=== PATIENT | male | born 1985 | race Caucasian/White ===

== ENCOUNTER 2023-11-15 09:42 | Emergency (ER) | payer OTHER, SELFPAY ==
[2023-11-15 09:43] VITALS: BP 168/112; PULSE 74; RESP 16; TEMP 36.6; O2SAT 98; BMI 36.3
--- NOTE | 2023-11-15 09:51 | EX.ED.DYSGE1 ---
HPI History of Present Illness Chief Complaint: Palpitations Informant: patient Onset/Context/Timing Onset: Days (3) Context: Sudden Onset Timing: Intermittent Quality: Skipping Location: Chest Worsened by: Nothing Relieved by: Nothing Associated Symptoms Associated Symptoms: Lightheadedness, dizziness Narrative Narrative: Patient presents with palpitations that have been intermittent over the past 3 days. Patient states his heart feels like it skips a beat. Patient states it only last for few seconds. Patient states nothing makes it better and nothing makes it worse. Patient admits to some dizziness and lightheadedness with this. Patient denies any shortness of breath or cough. Patient denies any nausea or vomiting. Patient denies any pain or tightness in his chest. Patient denies any fevers or chills. PFSH PFSH Medical History no medical history no medical history Home Medications diazepam 5 mg tablet 5 mg PO Q8 PRN Muscle Spasm #10 tabs 05/27/15 [Rx Last Taken Unknown] naproxen 500 mg tablet 500 mg PO BID PRN #20 tabs 05/27/15 [Rx Last Taken Unknown] oxycodone-acetaminophen 5 mg-325 mg tablet 1 - 2 tab PO Q4H PRN PRN Pain #20 tabs 05/27/15 [Rx Last Taken Unknown] Allergy/AdvReac Type Severity Reaction Status Date / Time No Known Allergies Allergy Verified 11/15/23 09:45 Surgical History no surgical history no surgical history ROS ROS ED Constitutional Constitutional ED: Denies chills or fever(s) Eyes Eyes: Denies blurry vision or change in vision ENT ENT ED: Denies rhinorrhea or sore throat Cardiovascular Cardiovascular: Reports palpitations; Denies chest pain Respiratory/Chest Respiratory/Chest: Denies cough or dyspnea Gastrointestinal Gastrointestinal: Denies nausea or vomiting Genitourinary Genitourinary ED: Denies dysuria or hematuria Musculoskeletal Musculoskeletal: Denies back pain or neck pain Integumentary Denies abscess or rash Neurologic Neurologic: Denies headache(s) or weakness Allergic/Immunologic Allergic/Immunologic ED: Denies mouth swelling or urticaria EXAM Physical Exam Const Vital Signs: 11/15/23 09:43 11/15/23 09:43 11/15/23 10:43 Temperature 97.8 F Temperature Source Temporal Pulse Rate 74 75 Respiratory Rate 16 12 Respiratory Effort Normal Non-Labored Blood Pressure 168/112 H 149/97 H Blood Pressure Mean 130 114 Pulse Ox 98 97 Oxygen Delivery Method Room Air 11/15/23 11:00 11/15/23 12:00 11/15/23 13:00 Temperature Temperature Source Pulse Rate 74 78 79 Respiratory Rate 11 L 13 12 Respiratory Effort Blood Pressure 149/89 H 148/96 H 132/61 H Blood Pressure Mean 109 113 84 Pulse Ox 98 97 99 Oxygen Delivery Method Room Air Room Air Room Air Positive well nourished, well developed and obese General Appearance ED: well developed and NAD Nutritional Appearance: obese HEENT Reports moist mucous membranes Neck supple and no JVD Resp normal respiratory effort and clear to auscultation bilaterally Cardio regular rate and regular rhythm GI non-tender and non-distended Palpation: soft Extremity normal to inspection General Extremety ED: Negative for edema or tenderness General Extremity: Negative for edema Neuro oriented x3, CN's II-XII intact bilaterally and no sensory deficits noted Sensorium / Orientation: alert Motor Exam: strength 5/5 throughout Psych mental status grossly normal MDM MDM MDM Narrative Medical decision making narrative: Differential diagnosis includes cardiac dysrhythmia, cardiac ischemia, electrolyte abnormality, viral illness, pneumonia, and anxiety. EKG will be obtained to assess for cardiac dysrhythmia and cardiac ischemia. Chest x-ray will be obtained to assess for pneumonia. CBC will be obtained to assess for leukocytosis and anemia. Basic metabolic profile will be obtained to assess for electrolyte abnormality and renal function. High-sensitivity troponin will be obtained to assess for cardiac ischemia. COVID-19, influenza, and RSV PCR will be obtained to assess for viral illness. Lab Data Attestation: I reviewed the patient's lab results. Lab results narrative: CBC was reviewed and was within normal limits. Basic metabolic profile was reviewed and was within normal limits. High-sensitivity troponin was reviewed and was normal. COVID-19 PCR was reviewed and was negative. Influenza PCR was reviewed and was negative for influenza A and influenza B. RSV PCR was reviewed and was negative. Labs: Laboratory Results - last 24 hr 11/15/23 10:42 WBC 6.0 RBC 5.41 Hgb 14.2 Hct 44.4 MCV 82.1 MCH 26.2 L MCHC 32.0 RDW Std Deviation 39.1 RDW Coeff of Montez 13.2 Plt Count 296 MPV 9.6 Immature Gran % (Auto) 0.300 Neut % (Auto) 65.4 Lymph % (Auto) 26.8 Winston % (Auto) 5.5 Eos % (Auto) 1.8 Baso % (Auto) 0.2 Absolute Neuts (auto) 4.0 Absolute Lymphs (auto) 1.62 Nucleated RBC % 0 Sodium 136 Potassium 4.1 Chloride 103 Carbon Dioxide 28.0 Anion Gap 5 BUN 15 Creatinine 0.96 Estim Creat Clear Calc 131.23 Est GFR (MDRD) Af Amer 113 Est GFR (MDRD) Non-Af 93 BUN/Creatinine Ratio 15.7 Glucose 115 H Calcium 8.8 Troponin I High Sens 48 Radiography Diagnostic Testing: Clinical Impression(s) from Imaging Studies Chest X-Ray 11/15/23 10:23 IMPRESSION: Normal x-ray examination of the chest. Electronically Signed: Hiram Simms MD at 11:57 EDT , PA and lateral chest x-ray was obtained. There are 2 views. On my independent interpretation, lung banuelos are clear. There is normal cardiac silhouette. Bony thorax is normal. There is no acute process noted. Radiologist also interpreted the x-ray and agrees. EKG Initial EKG: Attestation: I personally reviewed and interpreted this EKG as follows: Interpretation: Sinus Rhythm (74) and No Acute Injury Pattern Comments: EKG was obtained. On my independent interpretation, it showed a normal sinus rhythm with a rate of 74. NE interval, QRS interval, and QTc intervals were all normal. Morral was normal. There are no acute ST or T wave changes. Prior EKG tracings: not available for review Prior: No Prior Treatment and Re-Evaluation :: Patient was advised of his findings. Patient is feeling better on reevaluation. Patient was instructed to follow-up with his primary care physician in 5 to 7 days. Patient was instructed to return if worse in any way. Patient understood and was agreeable with the plan. All questions were answered. Discharge Plan Triage Chief Complaint: Palpitations ED Provider: Arcenio High Dx/Rx/DC Orders Clinical Impression: Heart palpitations, Anxiety Instructions: ED Palpitations Prescriptions: No Action oxycodone-acetaminophen 1 TABLET tablet 1 - 2 tab PO Q4H PRN PRN (Reason: Pain) Qty: 20 0RF naproxen 500 MG tablet 500 mg PO BID PRN Qty: 20 0RF diazepam 5 MG tablet 5 mg PO Q8 PRN (Reason: Muscle Spasm) Qty: 10 0RF Primary Care Provider: Care Physician,No Primary Referrals: Kamari Ramirez MD [Med Staff - Active Staff] - 5-7 Days Care Physician,No Primary [Primary Care Provider] - Disposition Disposition: Home, Self Care
--- NOTE | 2023-11-15 10:23 | RAD_ITS ---
STUDY: X-RAY CHEST REASON FOR EXAM: Male, 38 years old. Palpitations TECHNIQUE: PA and lateral views of the chest. COMPARISON: None. FINDINGS: EKG electrodes are seen. The lungs are clear and expanded. There is no demonstrated pleural abnormality. Normal size heart. Normal mediastinum and zurdo. Normal visualized pulmonary arteries. Normal visualized aortic arch and descending thoracic aorta. Normal visualized thoracic spine. Normal visualized ribs, clavicles, and shoulders. There is no demonstrated abnormality of the visualized soft tissue structures of the upper abdomen. RAD/Chest PA and Lateral IMPRESSION: Normal x-ray examination of the chest. Electronically Signed: Hiram Simms MD at 11:57 EDT ,
--- NOTE | 2023-11-15 10:23 | EKG12_ITS ---
Test Reason : PALPITATIONS Blood Pressure : / mmHG Vent. Rate : 074 BPM Atrial Rate : 074 BPM P-R Int : 174 ms QRS Dur : 092 ms QT Int : 398 ms P-R-T Axes : 025 016 039 degrees QTc Int : 441 ms Normal sinus rhythm Normal ECG Confirmed by VAHID ROBBINS, KP ([id number]), primer expeditor and drier ELBERT ZUÑIGA ([id number] on 11/16/2023 11:32:52 AM Referred By: ES/ Confirmed By:KP REDDING MD
[2023-11-15 10:43] VITALS: BP 149/97; PULSE 75; RESP 12; O2SAT 97
[2023-11-15 10:58] LABS: Absolute Lymphocyte Count 1.62 X10^3/uL (0.83-4.51); Basophil# 0.01 X10^3/uL; Basophil% 0.2 % (0-1); Eosinophil# 0.11 X10^3/uL; Eosinophils% 1.8 % (0-5); Hematocrit 44.4 % (40-54); Hemoglobin 14.2 g/dL (13.0-16.5); Lymphocyte # 1.62 X10^3/ul (0.83-4.51); Lymphocyte % 26.8 % (19-41); Mean Corpuscular Hgb 26.2 pg (27.0-32.0); Mean Corpuscular Volume 82.1 fL (80-94); Mean Platelet Vol. 9.6 fl (6.2-12.0); Monocyte# 0.33 X10^3/uL; Monocyte% 5.5 % (0-10); NRBC Flagged by Analyzer 0 % (0-5); Neutrophil # 3.95 X10^3/uL (2.7-7.7); Neutrophil % 65.4 % (47-70); Platelet Count 296 K/mm3 (150-450); RBC Distribution Width CV 13.2 % (11.6-14.6); RBC Distribution Width SD 39.1 fl (35.1-43.9); Red Blood Count 5.41 M/mm3 (4.6-6.2)
[2023-11-15 11:00] VITALS: BP 149/89; PULSE 74; RESP 11; O2SAT 98
[2023-11-15 11:20] LABS: Anion Gap 5 (5-15); BUN 15 mg/dL (7-18); BUN/Creat Ratio 15.7 RATIO (10-20); Calcium,Total 8.8 mg/dL (8.5-10.1); Chloride 103 mmol/L (98-107); Creatinine, Serum 0.96 mg/dL (0.70-1.30); EST Glomerular Filtration Rate 93 mL/min (>60); Est Glom Filt Rate - Afr Amer 113 mL/min (>60); Estimated Creatinine Clearance 131.23 ml/min; Glucose 115 mg/dL (74-106); Potassium 4.1 mmol/L (3.5-5.1); Sodium Level 136 mmol/L (136-145); Troponin-I HS 48 pg/mL (3.0-78.0)
[2023-11-15 12:00] VITALS: BP 148/96; PULSE 78; RESP 13; O2SAT 97
[2023-11-15 13:00] VITALS: BP 132/61; PULSE 79; RESP 12; O2SAT 99
[2023-11-15 13:43] VITALS: BP 148/87; PULSE 69; RESP 16; TEMP 36.8; O2SAT 99
== END 2023-11-15 13:44 | disposition home or self-care (01) ==
PROVIDERS: Emergency Provider Emergency Medicine; Visit Provider Emergency Medicine
DX: R00.2 Palpitations (principal); F41.9 Anxiety disorder, unspecified; E66.9 Obesity, unspecified
CPT/HCPCS: 71046; 80048; 84484; 85025; 87631; 93005; 99284